=== PATIENT | male | born 1980 | race Caucasian/White ===

== ENCOUNTER → 2018-06-03 12:17 | Outpatient (REF) | payer BC, SELFPAY ==
[2018-06-03 12:50] LABS: Cholesterol 185 mg/dL (50-200); HDL Cholesterol 47 mg/dL (40-60); LDL CHOLESTEROL 120 mg/dL (<100); Triglyceride 93 mg/dL (30-150)
== END ==
LOC: NCHCN 12:17
PROVIDERS: PCP Nurse Practitioner Family; Visit Provider Family Medicine
DX: Z13.220 Encounter for screening for lipoid disorders (principal)
CPT/HCPCS: 80061; 83721

== ENCOUNTER 2020-07-05 12:03 | Emergency (ER) | payer OTHER, BC, SELFPAY ==
[2020-07-05 12:05] VITALS: BP 126/77; PULSE 63; RESP 20; TEMP 36; O2SAT 98
--- NOTE | 2020-07-05 12:13 | ED.GENADUL_ITS ---
Discharge Plan Disposition Patient Disposition: HOME Condition: Stable Discharge Details Clinical Impression: Puncture wound of left ring finger Primary Care Provider: Barbara Zhang V ED Provider: Rehana Banks Home Meds and New Rx's Prescriptions: New clindamycin HCl 300 mg capsule 300 mg PO BID 7 Days Qty: 14 RF: 0 Discharge Instructions Instructions: Puncture Wound (ED), Steristrips (ED) Additional Instructions: Follow up with primary care provider in 3-5 days. Return to ED sooner if any worsening or concerns. Increase oral fluids. Please take Tylenol or Ibuprofen with food every 4-6 hours as needed for pain and swelling. No soaking. Leave alone for 12 to 24 hours. Keep clean and dry. Return for any signs of infection or concerns. Stand Alone Forms: Work Release Referrals: Barbara Zhang MD [Primary Care Provider] - Medical Decision Making 40-year-old male presents to the ER after a puncture wound noted to his left ring finger while at work. Patient reports a drill bit went into his left finger. He is complaining of pain. He does have full range of motion noted. EXAM: XR FINGER LT RING CLINICAL HISTORY: Crush injury, R/O fracture. TECHNIQUE: 2D digital imaging was performed. COMPARISON: None. FINDINGS: There is gauze around the ring finger and a soft tissue tissue defect in the ventral soft tissues at the level of the middle phalanx. There is no fracture or foreign body. IMPRESSION: Soft tissue injury. No evidence of fracture. Discussed digital block with patient which he declined at this time. Steri- Strips versus sutures discussed with patient, patient would prefer Steri-Strips states that he is afraid of needles. Wound was cleaned and irrigated by staff combat information center officer, patient was given ibuprofen in department prior to discharge. 3 Steri- Strips applied as noted in procedure note above. Pressure dressing applied. Discussed on home care and strict return instructions. Patient was given clindamycin 300 mg p.o. in department prior to discharge and a prescription for clindamycin twice a day x7 days was given. HPI General Mode of arrival: ambulatory . Date/Time Provider Initiated Documentation: 07/05/20 12:07 . Limitations to Documentation: no limitations . Information obtained by: patient . HPI Narrative: 40-year-old male presents to the ER with left ring finger injury. He was at work had a drill bit to his left ring finger on the palmar side. At the time of the initial exam bleeding is controlled, does have full range of motion noted to the digit. Last tetanus shot was 2018. Related Data Home Medications Medication Instructions Recorded Confirmed clindamycin HCl 300 mg PO BID 7 Days #14 cap 07/05/20 Previous Rx's Medication Instructions Recorded clindamycin HCl 300 mg PO BID 7 Days #14 cap 07/05/20 Allergies Allergy/AdvReac Type Severity Reaction Status Date / Time cefaclor [From Ceclor] Allergy Other (See Unverified 07/05/20 12:29 Comment) General Stated Complaint: Orthopedic STEPHANI: 4 Review of Systems All systems reviewed & are unremarkable except as noted in HPI and below Integumentary/Breasts Skin/Breast: Reports wounds (Puncture wound noted to left ring finger) [facility] Social History Smoking/Tobacco Use Status: Current every day Tobacco Type: smokeless tobacco Alcohol Intake: current Alcohol Intake frequency: holidays/special occasions only Drug use: Never Substance use type: does not use Do you feel safe at home: Yes Do you feel safe in your relationship?: Yes Exam Narrative Exam Narrative: Constitutional: Alert and oriented x3. Appears stated age. Normal body habitus. Head: Normocephalic, no trauma. Eyes: Pupils PERRLA, Red reflex noted, EOM's intact. Eyelids symmetrical without lesions, discharge, or swelling. ENT: Bilateral TM's WNL, External ear normal to inspection, no mastoid TTP, swelling, or erythema, Nasal turbinates WNL, no nasal discharge. Normal dentition, Posterior pharynx WNL, no exudate. Chest: RRR, Normal S1, S2, distal pulses intact. Resp: Lungs clear to auscultation bilaterally, no wheezes, rales, or rhonchi. Musculoskeletal: Normal gait, 5/5 strength to all four extremities. Skin: Irregular puncture wound noted to the palmar surface of his left ring finger. Bleeding is controlled. He does have decreased sensation noted to the distal tip of his finger. Full range of motion. Capillary refill less than 2 sec. Neurologic: Cranial nerves II-XII intact. Alert and oriented x 3. DTR's intact. Hematologic/Lymphatic: No ecchymosis, no lymphadenopathy. Course Vital Signs Vital signs: Vital Signs Temperature 36.0 C L 07/05/20 12:05 Pulse 63 07/05/20 12:05 Respiratory Rate 20 07/05/20 12:05 Blood Pressure 126/77 07/05/20 12:05 Pulse Oximetry 98 07/05/20 12:05 Temperature 36.0 C L 07/05/20 12:05 Temperature Source Skin 07/05/20 12:05 Pulse 63 07/05/20 12:05 Respiratory Rate 07/05/20 12:05 Blood Pressure 126/77 07/05/20 12:05 Blood Pressure Position Sitting 07/05/20 12:05 Pulse Oximetry 98 07/05/20 12:05 Oxygen Delivery Method Room Air 07/05/20 12:05 Oxygen Flow Rate 0 07/05/20 12:05 Pain Level 10 07/05/20 12:05 Procedures Laceration Laceration 1: Site: hand (Left index finger) Side (If applicable): left Size (cm): 1 Description: irregular and contaminated Depth: simple, single layer Local Anesthetic: Lidocaine 1% and other anesthetic (Topical applied by RN) Pre-repair: wound explored, irrigated extensively and deep structures intact Skin layer closed with: other (Steri strips) Number of sutures: 3 (Steri strips)
[2020-07-05] MEDS: Lidocaine/Epinephri/Tetracaine Topical Gel 3 ML (12:27)
--- NOTE | 2020-07-05 12:47 | DI.RAD_ITS ---
EXAM: XR FINGER LT RING CLINICAL HISTORY: Crush injury, R/O fracture. TECHNIQUE: 2D digital imaging was performed. COMPARISON: None. FINDINGS: There is gauze around the ring finger and a soft tissue tissue defect in the ventral soft tissues at the level of the middle phalanx. There is no fracture or foreign body. IMPRESSION: Soft tissue injury. No evidence of fracture. DATA REPOSITORY: RADIATION DOSE DELIVERED:
[2020-07-05] MEDS: Clindamycin 300 MG CAP PO (13:17)
[2020-07-05] MEDS: Ibuprofen 800 MG TAB PO (13:30)
== END 2020-07-05 13:40 | disposition home or self-care (01) ==
PROVIDERS: Emergency Provider Registered Nurse Emergency; PCP Family Medicine
DX: S61.235A Puncture wound without foreign body of left ring finger without damage to nail, initial encounter (principal); W29.8XXA Contact with other powered hand tools and household machinery, initial encounter; Y99.0 Civilian activity done for income or pay
CPT/HCPCS: 99283; 73140

== ENCOUNTER 2021-11-24 00:22 | Outpatient (CLI) | payer BC, SELFPAY ==
--- NOTE | 2021-11-24 07:45 | DI.RAD_ITS ---
Exam(s) XR SHOULDER RT COMPLETE 2+V EXAM: XR SHOULDER RT COMPLETE 2+V CLINICAL HISTORY: REPETITIVE STRAIN INJURY OF RT SHOULDER, M70.911, ACUTE ON CHRONIC PAIN. TECHNIQUE: 2D digital imaging was performed. COMPARISON: No exams were available for comparison FINDINGS: BONES: No acute fracture is present. No bony destructive lesion is seen. JOINTS: No dislocation present. Mild degenerative changes AC joint and glenoid. Glenohumeral joint space well maintained. SOFT TISSUE: Normal. IMPRESSION: Mild degenerative changes. DATA REPOSITORY: RADIATION DOSE DELIVERED:
== END 2021-11-24 00:42 ==
PROVIDERS: PCP Family Medicine; Visit Provider Nurse Practitioner Family
DX: M25.511 Pain in right shoulder (principal); M70.811 Other soft tissue disorders related to use, overuse and pressure, right shoulder; M19.011 Primary osteoarthritis, right shoulder
CPT/HCPCS: 73030

== ENCOUNTER → 2024-03-08 02:50 | Outpatient (CLI) | payer OTHER, BC, SELFPAY ==
--- NOTE | 2024-03-08 08:30 | DI.RAD_ITS ---
Exam(s) XR EYE FOREIGN BODY EXAM: XR EYE FOREIGN BODY INDICATION: PRE MRI FOR FB, superior labrum anterior posterior tear rt shoulder,S43.431. COMPARISON: No exams were available for comparison TECHNIQUE: 2D digital imaging was performed. Two images were obtained. FINDINGS: There are no radiopaque foreign body seen in the orbits. IMPRESSION: No radiopaque foreign bodies are seen in the orbits. DATA REPOSITORY: RADIATION DOSE DELIVERED:
--- NOTE | 2024-03-08 08:30 | DI.RAD_ITS ---
Exam(s) XR ABDOMEN FLAT PLATE EXAM: 2D digital imaging was performed. CLINICAL HISTORY: MRI screening, metal foreign body in abdomen, S30.424k. COMPARISON: No exams were available for comparison TECHNIQUE: Upright and an upright tangential views of the abdomen performed. FINDINGS: BOWEL GAS PATTERN: Nondistended. CALCIFICATIONS: No radiopaque calcifications. OSSEOUS STRUCTURES: Normal for age. OTHER FINDINGS: There is a 1.7 mm radiopaque foreign body in the subcutaneous tissues in the left low er abdominal wall. The tangential view confirms its location in the subcutaneous abdominal wall. IMPRESSION: 1.7 mm radiopaque foreign body in the subcutaneous left lower abdominal wall. DATA REPOSITORY: RADIATION DOSE DELIVERED:
--- NOTE | 2024-03-08 14:40 | DI.MRI_ITS ---
Exam(s) MR UPPER JOINT RT WO EXAM: MR UPPER JOINT RT WO CLINICAL HISTORY: r shoulder pain, labral tear of shoulder, S43.929A. TECHNIQUE: Multiplanar multisequence MRI was performed. COMPARISON: No exams were available for comparison FINDINGS: BONES: There is no fracture or contusion pattern. Subchondral edema and cysts are seen in the greater tuberosity. JOINTS: Mild degenerative changes are seen at the acromioclavicular joint. There are mild degenerati ve changes seen at the glenohumeral joint. TENDONS: Supraspinatus: There is tendinosis of the supraspinatus tendon without evidence of a tear. Infraspinatus: There is infraspinatus tendinosis. Subscapularis: Unremarkable. [place]: Unremarkable. Biceps and [place]: There is medial subluxation of the biceps tendon. There is a somewhat shallow bic ipital groove. MUSCLES: Unremarkable. GLENOID LABRUM: Unremarkable on this noncontrast examination. SOFT TISSUES: Unremarkable. LIGAMENTS: Unremarkable. OTHER: Subacromial and subdeltoid bursae are unremarkable. IMPRESSION: 1. There is medial subluxation of the biceps tendon. 2. Tendinosis of the supraspinatus and infraspinatus tendons. 3. Degenerative changes at the glenohumeral and acromioclavicular joints. DATA REPOSITORY:
== END ==
PROVIDERS: PCP Nurse Practitioner Family; Visit Provider Physician Assistant
DX: S43.431A Superior glenoid labrum lesion of right shoulder, initial encounter (principal); X58.XXXA Exposure to other specified factors, initial encounter; S30.851A Superficial foreign body of abdominal wall, initial encounter
CPT/HCPCS: 70030; 73221; 74018

== ENCOUNTER 2024-03-31 09:50 | Day surgery (SDC) | payer OTHER, SELFPAY ==
[2024-03-31] VITALS (49 sets, daily range): BP systolic 104–136; BP diastolic 54–85; PULSE 49–64; RESP 11–22; TEMP 36–36.6; O2SAT 89–98; BMI 31.4
--- NOTE | 2024-03-31 07:16 | PDOC.DSDIS_ITS ---
Date of service: 03/31/24 Time of Service: 14:00 Discharge Plan Disposition Patient Disposition: Home Condition: Stable Discharge Details Attending Provider: Bruce Damon Primary Care Provider: YANELIS GARRIDO Home Meds and New Rx's Prescriptions: New naproxen 250 mg tablet 250 - 500 mg PO BID PRN (Reason: moderate pain and swelling) Qty: 40 0RF oxycodone 5 mg tablet 5 - 10 mg PO .q4-6h PRN (Reason: severe pain) Qty: 18 0RF Continued albuterol sulfate 90 mcg/actuation HFA aerosol inhaler 2 puff inhalation Q6H PRN Discharge Instructions Additional Instructions: Surgery: Right shoulder arthroscopy with rotator cuff repair (subscapularis), extensive debridement, subacromial decompression, and open biceps tenodesis. Activity: For 6 weeks, you should keep your arm at your side in a neutral position at all times except for physical therapy. Do not try to lift or raise your arm using your own muscles. You should use the sling whenever you are out of the house. At home it is best to remove the sling and rest the arm on a p illow at your side or support the operative side with your other hand. You may allow the arm to dangle at your side. A physical therapy prescription will be sent electronically to begin in about 3 weeks. STANDARD protocol. Prescriptions: Naproxen 250 mg take 1-2 every 12 hours with a meal as needed for moderate pain Oxycodone 5 mg take 1-2 every 4-6 hours as needed for severe pain You may use copa-jji-vdvjrwe Tylenol (acetaminophen) as needed for mild pain. These pain medications may be taken all at once or in different combinations as needed. Also, recommend Colace (docusate) as a stool softener as surgery and pain medicine cause constipation. You may try oluq-zzz-[id number] diphenhydramine (Benadryl) 25-50 mg nightly as a sleep aid Dressings: Remove shoulder bandage after 3 days. Leave the sticky Steri-Strips in place until they fall off or remove them after you shower. Cover the incisions with Band-Aids or leave them open to air. The biceps bandage (inside upper arm) is glued on separately. You may leave this one on a few days longer if it is difficult to remove. There is also glue underneath this bandage that can be left in place until it peels off. You may shower after 5 days. Follow-up: 10-[address] Damon You may take off the leg compression stockings this evening at home. You may also leave them on a few days longer if you have a history of leg swelling or edema. Let us know right away if you develop any redness, drainage, fevers, chest pain, or trouble breathing. Do not drink alcohol or drive for at least 24 hours after anesthesia. Please call the office during business hours with any questions or concerns. Discharge Orders Discharge Orders: Discharge Order (Routine); Ordered 03/31/24 Ordered By: Nevin Ruiz DS: Diagnosis Discharge Diagnosis (1) Traumatic tear of right rotator cuff: Status: Acute (2) Tendonitis of long head of biceps brachii of right shoulder: Status: Acute
--- NOTE | 2024-03-31 07:23 | W.PM.OP ---
Date of service: 03/31/24 Time of Service: 13:00 Operative Note Operative Note DATE OF PROCEDURE: 03/31/24 PRE-OP DIAGNOSIS: Right: 1. Rotator cuff tear 2. LHB tendinopathy 3. SLAP tear POST-OP DIAGNOSIS: same PROCEDURE: Right: 1. Rotator cuff repair, CPT# 83826. This involved repair of the subscapularis using anchor and sutures to reattach the rotator cuff back to the footprint of the lesser tuberosity. 2. Open biceps tenodesis, CPT# 46447. This involved reattaching the long head of the biceps tendon to the proximal humerus in the sub-pectoral area of the bicipital groove at the correct tension. 3. Extensive debridement, CPT# 45594. This involved using arthroscopic hand instruments, power instruments, and radiofrequency instruments to release the long head of the biceps tendon and debride areas of mild anterior and posterior labral tearing, SLAP tear, release anterior capsular adhesions and debride rotator interval synovitis, and debride partial articular supraspinatus tear and working within the glenohumeral joint anteriorly, superiorly and posteriorly. 4. Subacromial decompression with partial acromioplasty, CPT# 95899. This involved using arthroscopic power instruments and a radiofrequency wand to complete a bursectomy and smooth the undersurface of the acromion. The hair or beauty salon assistant was medically required in order to help assist in techniques above, which require positioning the arm, holding the arthroscope, and manipulating multiple instruments and sutures at the same time. This cannot be done without the help of an experienced hair or beauty salon assistant. SURGEON: Bruce Damon DYE RANGE OPERATOR CLOTH: Nevin Ruiz ANESTHESIA TYPE: Local By Surgeon, General LMA/ETT and Primary Nerve Block Refer to Anesthesia Record ESTIMATED BLOOD LOSS: 5 PATHOLOGY: none sent COMPLICATIONS: None Patient was transported to: PACU Patient's condition: stable Implants: Arthrex: 4.75mm SwiveLocks x 1 and unicortical Proximal Biceps Tenodesis Button Indications: The patient was diagnosed with the above conditions and appropriately indicated for surgical intervention. Please see complete medical record for details. Findings: Exam under anesthesia: Full range of motion, no instability Glenohumeral joint: Obvious medial biceps subluxation/dislocation from the bicipital groove into and tearing both biceps and subscapularis. The subscapularis upper 50% had the split tear as well as detached from the upper half of the lesser tuberosity and adhered scarred to the anterior capsule. There was unstable biceps anchor SLAP tear. The intra-articular biceps had significant partial tearing throughout majority of its course past the level of bicipital groove although was resting more medially. Mild anterior posterior labral fraying. Mild anterior undersurface articular supraspinatus tearing with no significant footprint involvement. Articular cartilage largely intact. Subacromial space: Moderate bursitis, no significant undersurface, bone spur, moderate rotator cuff fraying bursal and diffuse central to lateral injection without significant structural tearing. Procedure Description: In the operating room, general anesthesia was induced. Bilateral shoulders were examined. The patient was positioned in the beachchair position. All bony prominences were well-padded. Preoperative antibiotics were administered. The shoulder was prepped and draped in the usual sterile fashion. The correct patient, procedure, and side of the procedure were all verified prior to incision. Starting through the posterior portal a standard complete diagnostic arthroscopy was performed of the glenohumeral joint including inspection of the long head of the biceps, anterior and superior labrum, subscapularis tendon, supraspinatus and infraspinatus tendons, and axillary recess. The glenoid and humeral head cartilage as well as the posterior labrum were inspected from an anterior viewing portal. Significant findings and interventions noted above. The biceps tendon was released from the superior labrum using arthroscopic scissors. The lesser tuberosity was prepared abraded with a rasp as well as within the intrasubstance of the subscapularis to optimize healing. Arthroscopic scissors were used to release the subscapularis and anterior capsular adhesions. Appropriate excursion was confirmed with the arm in neutral position of the torn aspect of the subscapularis to the lesser tuberosity. The scorpion passer was used to shuttle a suture tape FiberLink in cinch mode in the upper lateral aspect of subscapularis, traction maintained and the scorpion used to place a horizontal mattress FiberTape more centrally and medially well securing the repair. The repair was then completed to a 4.75 mm bio composite SwiveLock anchor. The repair was inspected and tested and showed good reduction, subscapularis restored contour, and stable through external rotation. Starting through the posterior portal, the arthroscope was directed into the subacromial space. A lateral 50 yard line lateral portal was created. A combination of power instruments and a radiofrequency ablator were used to debride bursitis anteriorly, posteriorly, and laterally as well as expose and smooth bone spurring on the undersurface of the acromion. The coracoacromial ligament was minimally released. The bursectomy was completed viewing laterally and working from posteriorly and the rotator cuff was thoroughly inspected with findings noted above. The shoulder was drained of arthroscopic fluid. All portal sites were copiously irrigated. Shoulder portals were covered. 10 cc of 0.25% bupivacaine with epinephrine was infiltrated about a 3 cm longitudinal incision at the inferior margin of the pectoralis major localized over the long head of the biceps tendon. Blunt and sharp dissection were used to expose the tendon in the bicipital groove. The tendon was brought out of the wound and kept off the skin on top of a blue towel. It had significant flattening widening and degeneration through the majority of the tendon course until a few centimeters from the musculotendinous junction. The correct location for sub-pectoral fixation was localized, prepped with a rasp, and then drilled with a 3.2 mm drill pin in a unicortical fashion. Using a fiber loop suture the tendon was prepped from the musculotendinous junction a few centimeters proximal. The excess tendon was amputated. The free suture ends were then passed through the unicortical button implant. The drill pin was removed and the implant was placed into the humeral intramedullary canal. The button was flipped and the sutures were tensioned bringing the tendon down to bone. Tension and fixation were then tested and found to be appropriate. The free ends of the suture were were tied compressing tendon to bone. The wound was copiously irrigated with normal saline. Subcutaneous tissue was closed using 3-0 Monocryl in a buried interrupted fashion. Skin was closed using 3-0 Monocryl in a buried subcuticular running fashion. Skin glue was applied over the incision. Mastisol was applied about the incision. The incision was covered with Mepilex. These incisions were closed using 3-0 Monocryl in a buried fashion and then covered with Mastisol, Steri-Strips, Xeroform, dry gauze, and ABDs. The dressings were covered and secured with Medipore tape. The operative extremity was placed into a sling for immobilization. The patient awoke from anesthesia without complication and was transferred to the recovery room in a stable condition.
--- NOTE | 2024-03-31 08:00 | W.ANESPRE ---
General Info Date of Service Date Performed: 03/31/24 Height: 5 ft 7 in Weight: 91.172 kg Body Mass Index (BMI): 31.4 Surgical Procedure: Operation Date: 03/31/24 11:25 Proposed Procedure Side Surgeon p Shoulder Rotator Cuff Arthroscopic w/Extensive Debridement, Biceps Tenodesis, Subacromial Decompression Right Bruce Damon MD Meds Allergies and Home Medications Allergies Allergy/AdvReac Type Severity Reaction Status Date / Time cefaclor [From [facility]] Allergy UNKNOWN-as Verified 03/31/24 10:04 an Home Medication Medication Instructions Recorded albuterol sulfate 90 mcg/actuation 2 puff inhalation Q6H PRN 02/08/24 aerosol inhaler naproxen 250 mg tablet 250 - 500 mg (1 - 2 x 250 mg) PO 03/31/24 BID PRN moderate pain and swelling #40 tabs oxycodone 5 mg tablet 5 - 10 mg (1 - 2 x 5 mg) PO .q4-6h 03/31/24 PRN severe pain #18 tabs Current Visit Medications: Current Medications Generic Name Dose Route Start Last Admin Trade Name Freq PRN Reason Stop Dose Admin Ringer's Solution 1,000 mls @ 30 mls/hr 03/31/24 06:00 IV 03/31/24 23:59 INFUSION ILIR Cefazolin Sodium/Dextrose 2 gm in 50 mls @ 100 mls/hr 03/31/24 06:00 Ancef Duplex IVPB 03/31/24 23:59 PREOP ILIR Tranexamic Acid/Sodium Chloride 1,000 mg in 100 mls @ 600 mls/hr 03/31/24 06:00 IVPB 03/31/24 23:59 PREOP ILIR IV Miscellaneous Supplies 1 each 03/31/24 06:00 Iv Access IV 03/31/24 23:59 DIRECTED ILIR Oxycodone HCl 0 mg 03/31/24 07:15 Oxycodone 5 Mg Tab PO 04/30/24 07:14 Q3H PRN PRN Pain Sodium Chloride 0 ml 03/31/24 06:00 Normal Saline Flush 10 Ml Syr IV 03/31/24 23:59 PRN PRN Sodium Chloride 0 ml 03/31/24 06:00 Normal Saline 10 Ml Vial IJ 03/31/24 23:59 DIRECTED PRN Sterile Water 0 ml 03/31/24 06:00 Water,Injection,Sterile 10 Ml Vial IJ 03/31/24 23:59 DIRECTED PRN PFSH Active Problems Active Problems: Problem Status Onset Code Tendonitis of long head of biceps brachii of right shoulder M75.21 Traumatic tear of right rotator cuff S46.011A Superior labrum zpvwdnlg-jt-bywoxuekc (SLAP) tear of right shoulder S43.431A Internal hemorrhoids K64.8 Anal fissure K60.2 Labral tear of shoulder ~08/2021 S43.439A Epicondylitis, lateral, right M77.11 Exercise-induced asthma J45.990 Foreign body in right ear, initial encounter T16.1XXA Tobacco Smoking/Tobacco Use Status: Former Tobacco Use Alcohol Alcohol Intake: current Alcohol intake frequency: holidays/special occasions only Substance Use Substance use: Never Substance use type: does not use Vital Signs and Lab Results Vital Signs Most Recent Vital Signs in EMR: Temp Pulse Resp BP Pulse Ox 36.6 C 58 L 16 136/85 98 03/31/24 09:55 03/31/24 09:55 03/31/24 09:55 03/31/24 09:55 03/31/24 09:55 Lab Results Blood Type / Crossmatch: No Data to Display Complete Blood Count: No Data to Display Complete Metabolic Panel: No Data to Display Liver Function Panel: No Data to Display Coagulation Panel: No Data to Display Cardiac Panel: No Data to Display Arterial Blood Gas: No Data to Display Venous Blood Gas: No Data to Display Pancreas Panel: No Data to Display Thyroid Panel: No Data to Display Infectious Disease: No Data to Display Blood Cultures: No Data to Display Toxicology Panel: No Data to Display Imaging and Studies Imaging and Studies Study information below may be from another EMR and interpreted by another provider. Please see original notes in EMR for more complete details. Echocardiogram Summary: 01/04: LVEF 65%, no valve issues. Anesthesia Assessment and Plan Anesthesia History Personal History: No History of Anesthesia Complications Family History: No Family History of Anesthesia Complications Exercise Tolerance Exercise Tolerance: Metabolic Equivalents>4 Cardiac & Pulmonary Exam Cardiac Exam: Normal S1/S2 Heart Sounds Pulmonary Exam: Clear Bilateral Breath Sounds Implantable Cardiac Device Does patient have a Pacemaker or an ICD?: No Airway Exam Known Difficult Airway: No Mallampati Class: 2 Mouth Opening: Normal (> 3cm) Thyromental Distance: Greater than 3 cm Neck Range of Motion: Full ROM Neck Circumference: Normal Teeth Condition: Normal Dentition ASA Classification ASA Score: ASA 2 Emergency Case?: No NPO Status NPO Status: NPO Clears >2 hours, Solids >8 hours Anesthesia Plan Resuscitation Status: Full Code Anesthesia Technique: General Anesthesia Airway Planned: Endotracheal Tube Pain Management: Surgeon and patient request nerve block Monitors Used: Standard Monitors Preoperative Comments:: 43 yo male for shoulder scope. Sig PMHx: exercise induced asthma (albuterol), former tobacco, occ EtOH.
[2024-03-31] MEDS: Lactated Ringers 1,000 ML 30 ML IV (10:19)
[2024-03-31] MEDS: ceFAZolin 2 GM/50 ML BAG IVPB (11:43)
[2024-03-31] MEDS: TRANEXAMIC ACID/SOD. CHL. 1,000 MG/100 ML BAG 600 MG IVPB (11:58)
[2024-03-31] MEDS: Bupivacaine 0.25% Pres-Free W/EPI 30 ML VIAL (12:15)
--- NOTE | 2024-03-31 12:19 | W.ANESNERVE ---
Nerve Block Single Injection Procedure Date and Time Date Performed: 03/31/24 Procedure Start: 10:23 Location Where Procedure Performed Procedure Location: Day Surgery Unit Reason Performed: Postoperative Analgesia Requesting Provider: Bruce Damon Timeout Performed Timeout Performed: Yes Monitoring Used ECG, Blood Pressure and SpO2 Sterility Sterility: Hand Hygiene, Surgical Cap, Surgical Mask, Sterile Gloves and Chlorhexidine Sedation Given During Procedure Sedation Given (Indicate Dose Given): Versed IV Dose:: 2 mg Patient Mental Status Patient Mental Status: Sedate with meaningful communication Nerve Block 1st Nerve Block: Laterality: Right Block Type: Interscalene Ultrasound Image Saved?: Yes Needle / Catheter Used: 100mm SonoPlex II Local Anesthetic Bolus (Indicate Dose Given): Lidocaine used for local infiltration of skin, Bupivacaine 0.5% Dose:: 10 mL and Exparel Dose:: 10 mL Additives (Indicate Dose Given): None Ultrasound: Sterile probe cover and gel used Nerve Stimulator: Supplement to Ultrasound use and No twitch or parasthesia noted < 0.5 mA Paresthesia: None Procedure Tolerated: No Complications Procedure Outcome: Successful Performed By: Isac Gray
[2024-03-31] MEDS: EPINEPHrine 10 MG/10 ML ML (13:31)
--- NOTE | 2024-03-31 14:38 | W.ANESPOSTOP ---
Postoperative Evaluation Date, Time and Location Date Performed: 03/31/24 Time Performed: 14:26 Patient Location: PACU Vital Signs Most Recent Imported Vital Signs: Most Recent Vital Signs Temp Pulse Resp BP Pulse Ox 36.6 C 52 L 20 116/61 94 03/31/24 14:30 03/31/24 14:30 03/31/24 14:30 03/31/24 14:30 03/31/24 14:30 Pain Score Most Recent Pain Score: Most Recent Pain Score Pain Level 0 03/31/24 14:22 Assessment Mental Status: Awake (Alert & Oriented to Patient Baseline) Airway and Respiratory Function: Patent airway with normal (patient baseline) respiratory exam Cardiovascular Function: Hemodynamically Stable Hydration Status: Adequately Hydrated Nausea & Vomiting: No Nausea or Vomiting Pain: Pt. Denies Any Pain Peripheral Nerve Block: Regional nerve block not resolved at time of post operative discharge
== END 2024-03-31 15:55 | disposition home or self-care (01) ==
LOC: SUR 09:51
PROVIDERS: PCP Nurse Practitioner Family; Visit Provider Student in an Organized Health Care Education/Training Program
PROC: (CPT 29827; principal; 2024-03-31 11:15)
DX: S46.011A Strain of muscle(s) and tendon(s) of the rotator cuff of right shoulder, initial encounter (principal); M75.21 Bicipital tendinitis, right shoulder; S43.431A Superior glenoid labrum lesion of right shoulder, initial encounter; X58.XXXA Exposure to other specified factors, initial encounter
CPT/HCPCS: 23430; 29827; 29823; 29826; 76942; C9290; J0131; J0665; J0690; J1100; J1885; J2250; J2371; J2405; J2704

== ENCOUNTER 2025-01-20 16:50 | Emergency (ER) | payer BC, SELFPAY ==
[2025-01-20 16:55] VITALS: BP 151/83; PULSE 68; RESP 18; TEMP 36.9; O2SAT 98
--- NOTE | 2025-01-20 17:14 | ED.GENADUL_ITS ---
Discharge Plan Disposition Patient Disposition: Home Condition: Good Discharge Details Clinical Impression: Cellulitis Primary Care Provider: YANELIS GARRIDO ED Provider: Nati Nava Home Meds and New Rx's Prescriptions: New cephalexin 500 mg capsule 500 mg PO Q6H 6 Days Qty: 24 0RF No Action albuterol sulfate 90 mcg/actuation HFA aerosol inhaler 2 puff inhalation Q6H PRN Discharge Instructions Instructions: Cellulitis (Skin Infection), Adult ED Additional Instructions: A referral to podiatry has been made. Please call first thing Wednesday morning to schedule follow-up appointment for reevaluation. Please also call your primary care provider to schedule a reassessment within the next week, especially if your podiatry appointment will not be for a couple of weeks. You are being prescribed an antibiotic to treat the skin infection. Please take the full course as prescribed. I recommend that you also continue to use tash-dyw-yvqegff Lotrimin cream as directed according to package instructions. Elevate foot above heart level to help with swelling. I encourage you to put a clean nonstick dressing on your foot and change your socks frequently. Wash daily with antibacterial soap and water. Do not scrub at the dry spots. You may use Tylenol or ibuprofen as needed for discomfort. Return to emergency care if you develop new fever/chills, increased swelling to your foot/lower leg, generalized feeling of unwellness, numbness/tingling to your foot, or if you are very worried and need to be rechecked again immediately. Referrals: Jennifer Gatica DPM [[facility] STAFF PHYSICIAN] - [facility] General Date/Time Provider Initiated Documentation: 01/20/25 17:08 . [facility] Narrative: Choco is a 44 year old male who presents to the emergency department today for evaluation of L foot pain/rash. He reports the lesion initially started in July after walking around hunting in rubber boots, says that was a warm day and his feet got sweaty. It started out as a round lesion at the arch of his left foot, has since spread to approximately 8 x 5 cm patch. He has tried hydrocortisone cream, Preparation H, and other topical treatments without improvement of symptoms. He did apply some antifungal couple days ago which she says has dried it out, but he has since turned warm and swollen and 1 area, so he is concerned it might be infected. Otherwise is feeling well, denies f ever/chills, general malaise, or recent illness. No distal numbness/tingling or other foot pain. Denies history of immunocompromise, diabetes, history of antibiotic resistant infections, or antibiotic allergies. Past medical history is significant for eczema. He does have a PCP he can reach out to. Physical exam remarkable for dry, scaly patch to the arch of the left foot a proximal 8 x 5 cm. There is an area of warmth and induration. No active drainage. He does have round lesions on chest and arm consistent with nummular eczema. eripheral pulses intact, brisk cap refill. No other pain with palpation of the foot. Patient is alert and oriented, no acute distress. D/dx includes but is not limited to: Cellulitis, abscess, fungal infection, nummular eczema/other eczema I independently interpreted the following tests: US performed by Dr Bhakta, +cobblestoning, no fluid collection c/w abscess Overall workup today reassuring, likely cellulitis superimposed on fungal infection, though dyshidrotic eczema/nummular eczema also possible. While in the emergency department, Choco received first dose of antibiotics. He has a history of allergy to Ceclor as an , not sure what kind of reaction he had. He has tolerated cephalosporins in the past according to medical records. Will treat with cephalexin, as pt has no concerning risk factors for MRSA. Recommend continued antifungal use at home as this has provided some improvement of appearance of rash. Referral placed for podiatry referral. Reviewed discharge instructions with patient, including symptomatic management and red flags indicating need for return to emergency care Related Data Home Medications ?Medication ?Instructions ?Recorded ?Confirmed albuterol sulfate 90 mcg/actuation 2 puff inhalation Q6H PRN 02/08/24 01/20/25 aerosol inhaler cephalexin 500 mg capsule 500 mg PO Q6H 6 days #24 caps 01/20/25 Previous Rx's ?Medication ?Instructions ?Recorded cephalexin 500 mg capsule 500 mg PO Q6H 6 days #24 caps 01/20/25 Allergies Allergy/AdvReac Type Severity Reaction Status Date / Time cefaclor (From Ceclor) Allergy UNKNOWN-as Verified 01/20/25 17:00 an General Stated Complaint: Cellulitis STEPHANI: 4 Review of Systems Narrative: see HPI Exam Const General: cooperative, healthy appearing, comfortable and no acute distress Nutritional Appearance: average body habitus Skin Rashes: rashes noted patches left plantar foot size (approx 8cm x 5 cm), color with an erythematous base, surface dry and scaly and tender (with area of induration and warmth); fluctuant not assessed Neuro Gait: normal gait Sensory Exam: no sensory deficits noted Extrem Right lower extremity: normal to inspection Left lower extremity: ankle Details: normal to inspection and foot Details: toes with normal ROM and no edema; no abrasions, no lacerations, no crepitus, no foreign bodies and no puncture wound Course Vital Signs Vital signs: Vital Signs Temperature 36.9 C 01/20/25 16:55 Pulse 68 01/20/25 16:55 Respiratory Rate 18 01/20/25 16:55 Blood Pressure 151/83 H 01/20/25 16:55 Pulse Oximetry 98 01/20/25 16:55 Temperature 36.9 C 01/20/25 16:55 Temperature Source Oral 01/20/25 16:55 Pulse 68 01/20/25 16:55 Respiratory Rate 18 01/20/25 16:55 Blood Pressure 151/83 H 01/20/25 16:55 Blood Pressure Position Sitting 01/20/25 16:55 Pulse Oximetry 98 01/20/25 16:55 Oxygen Delivery Method Room Air 01/20/25 16:55 Oxygen Flow Rate 0 01/20/25 16:55 Pain Level 7 01/20/25 16:55 Medical Decision Making Quality:SDOH Health Related Social Needs: No Data to Display PFSH All Active Problems (Updated 01/20/25 @ 17:37 by Nati Palacio) Cellulitis (Acute) Tendonitis of long head of biceps brachii of right shoulder (Acute) Traumatic tear of right rotator cuff (Acute) s/p Right shoulder arthroscopy with rotator cuff repair (subscapularis), extensive debridement, subacromial decompression, and open biceps tenodesis 03/31/24 Superior labrum jafluiji-rp-qxzbtskrv (SLAP) tear of right shoulder (Acute) Internal hemorrhoids (Acute) Anal fissure (Acute) Labral tear of shoulder (Acute ~08/2021) Epicondylitis, lateral, right (Acute) Exercise-induced asthma (Acute) Foreign body in right ear, initial encounter (Acute) Social History Smoking/Tobacco Use Status: Current every day Tobacco Type: smokeless tobacco Smoking risk assessment performed?: Yes Alcohol Intake: current Alcohol Intake frequency: holidays/special occasions only Drug use: Occasionally Substance use type: marijuana Housing: house Current gender identity: male Do you feel safe at home: Yes Do you feel safe in your relationship?: Yes
--- NOTE | 2025-01-20 17:34 | W.EDPROG ---
Date of service: 01/20/25 Time of Service: 17:34 Medical Decision Making Quality:SDOH Health Related Social Needs: No Data to Display Discharge Plan Discharge Details Chief Complaint: Cellulitis Primary Care Provider: YANELIS GARRIDO ED Provider: Nati Nava Home Meds and New Rx's Prescriptions: No Action albuterol sulfate 90 mcg/actuation HFA aerosol inhaler 2 puff inhalation Q6H PRN POCUS Exam (ED) Limited Soft Tissue Exam LOCATION OF EXAM: Lower extremity/left REASON FOR EXAM: Rash Exam Complete DIFFERENTIAL DIAGNOSES: I was asked to perform a bedside ultrasound of the patient's left foot for rash. There is no visible abscess, did have some cobblestoning appearance on the rash on his left inner foot.
[2025-01-20] MEDS: Cephalexin 500 MG CAP, 2 CAPS/BTL PO (17:47)
--- NOTE | 2025-01-20 18:00 | NUR.NOTE ---
Nursing Note: this RN in chart after D/C D/T [facility] pharmacist calling regarding mediations given in the department
== END 2025-01-20 17:50 | disposition home or self-care (01) ==
LOC: ER 18:26
PROVIDERS: Emergency Provider Nurse Practitioner Family; PCP Nurse Practitioner Family
DX: L03.116 Cellulitis of left lower limb (principal); F17.290 Nicotine dependence, other tobacco product, uncomplicated
CPT/HCPCS: 00123; 76882; 99283

== ENCOUNTER 2025-03-03 16:41 | Outpatient (REF) | payer BC, SELFPAY | END 2025-03-03 16:42 | disposition home or self-care (01) | LOC: LBN 16:41 | PROVIDERS: PCP Nurse Practitioner Family; Visit Provider Nurse Practitioner Family | DX: T14.8XXA Other injury of unspecified body region, initial encounter (principal); B95.62 Methicillin resistant Staphylococcus aureus infection as the cause of diseases classified elsewhere | CPT/HCPCS: 87077; 87070; 87186; 87205 ==

== ENCOUNTER 2025-07-05 14:57 | Outpatient (REF) | payer BC, SELFPAY ==
[2025-07-05 19:09] LABS: HCT 42.6 % (40.0-50.0); HGB 14.9 g/dL (13.5-17.5); MCH 31.0 pg (27.0-33.0); MCHC 35.0 % (32.0-36.0); MCV 89 fL (80-95); MPV 10.6 fL (8.0-11.0); Platelet Count 219 10^3/uL (130-400); RBC 4.81 10^6/uL (4.36-5.78); RDW 12.7 % (11.8-14.1); RDW-SD 41.4 fL; WBC 7.54 10^3/uL (4.4-10.8)
[2025-07-05 19:50] LABS: ALT 35 U/L (16-63); AST 24 U/L (15-37); Albumin 4.1 g/dL (3.4-5.0); Alkaline Phosphatase 78 U/L (46-116); Anion Gap 9.1 mmol/L (3-11); BUN 27 mg/dL (7-18); Bilirubin, Total 0.6 mg/dL (0.2-1.0); CO2 26.9 mmol/L (21.0-32.0); Calcium 9.1 mg/dL (8.5-10.1); Calculated LDL 126 mg/dL (<100); Chloride 102 mmol/L (98-107); Cholesterol 218 mg/dL (<200); Estimated GFR 108.01 (mL/min/1.73m2); Glucose 99 mg/dL (74-106); HDL Cholesterol 55 mg/dL (>or=40); Potassium 4.3 mmol/L (3.5-5.1); Sodium 138 mmol/L (136-145); TSH (W/Ref FT4) 0.94 uIU/mL (0.36-3.74); Total Protein 6.8 g/dL (6.4-8.2); Triglyceride 189 mg/dL (<150)
== END 2025-07-05 14:58 | disposition home or self-care (01) ==
LOC: NCHCN 14:57
PROVIDERS: PCP Nurse Practitioner Family; Visit Provider Nurse Practitioner Family
DX: Z00.00 Encounter for general adult medical examination without abnormal findings (principal)
CPT/HCPCS: 80053; 80061; 85027; 84443